=== PATIENT | male | born 1985 | race Caucasian/White ===

== ENCOUNTER 2024-05-25 08:45 | Inpatient (IN) | payer OTHER ==
[~2024-05-25] VITALS: Ht 168.9 cm; Wt 75.9 kg
[2024-05-25 09:00] VITALS: PULSE 82; RESP 20; O2SAT 94
[2024-05-25 09:29] LABS: Basophils # (auto) 0.1 10 ^3/uL (0-0.2); Basophils % (auto) 0.5 % (0.0-2.0); Eosinophils # (auto) 0 10 ^3/uL (0-0.8); Eosinophils % (auto) 0.4 % (0.0-7.0); Hematocrit 47.7 % (41.0-53.0); Lymphocytes # (auto) 1.8 10 ^3/uL (0.4-5.4); Lymphocytes % (auto) 14.8 % (10.0-50.0); Mean Corpuscular Hemoglobin 30.5 pg (28.0-32.0); Mean Corpuscular Hgb Conc. 33.6 g/dL (32.0-36.0); Mean Corpuscular Volume 90.9 fL (80.0-100.0); Monocytes # (auto) 0.5 10 ^3/uL (0-1.3); Monocytes % (auto) 3.8 % (0.0-12.0); Neutrophils # (auto) 9.8 10 ^3/uL (1.6-8.6); Neutrophils % (auto) 80.5 % (37.0-80.0); Platelet Count (auto) 281 10^3/uL (140-450); Red Blood Cells 5.25 10^6/uL (4.5-5.90); Red Cell Distribution Width 13.7 % (11.8-14.3); White Blood Cell 12.2 10^3/uL (4.4-10.8)
[2024-05-25 10:02] LABS: Alanine Aminotransferase 25 U/L (7-40); Albumin 4.8 g/dL (3.2-4.8); Alkaline Phosphatase 75 U/L (46-116); Anion Gap 6 (5-15); Aspartate Aminotransferase 39 U/L (13-40); BUN/Creatinine Ratio 12.9 (10.0-20.0); Bilirubin, Total 0.4 mg/dL (0.2-1.0); Blood Urea Nitrogen 11 mg/dL (9-23); Carbon Dioxide 28 mmol/L (20-31); Chloride 106 mmol/L (98-107); Glucose 108 mg/dL (74-106); Potassium 4.4 mmol/L (3.5-5.1); Sodium 140 mmol/L (136-145); Total Protein 7.3 g/dL (5.7-8.2)
[2024-05-25] MEDS: ASPirin 325 MG TAB PO ONE (10:30)
[2024-05-25] MEDS: ONDANSETRON HCL 4 MG/2 ML VIAL IV ONE (10:30)
[2024-05-25] MEDS: MORPHINE SULFATE 4 MG/ML SYR/VIAL IV ONE (10:30)
[2024-05-25] MEDS: HEPARIN SODIUM (PORCINE) 5000 UNITS/ML 1ML VIAL IV ONE (10:45)
[2024-05-25] MEDS ORDERED: SODIUM CHLORIDE 0.9% 1,000 ML IV SCH (11:45)
[2024-05-25] MEDS ORDERED: ACETAMINOPHEN 325 MG TAB PO PRN ×2 (11:45→12:00)
[2024-05-25] MEDS ORDERED: HYDROcodone-ACET 5/325MG TAB PO PRN (11:45)
[2024-05-25] MEDS ORDERED: NITROGLYCERIN 0.4 MG SL TAB SL PRN ×2 (11:45→12:00)
[2024-05-25] MEDS ORDERED: MORPHINE SULFATE INJ 2 MG/ml SYRG IV PRN ×2 (11:45)
[2024-05-25] MEDS ORDERED: CLOPIDOGREL BISULFATE 75 MG TAB PO ONE (11:45)
[2024-05-25] MEDS ORDERED: ATORVASTATIN 20 MG TAB PO ONE (11:45)
[2024-05-25] MEDS ORDERED: HEPARIN DRIP/D5W 100UNITS/ML 250 ML IV SCH (11:45)
[2024-05-25] MEDS: SODIUM CHLORIDE 0.9% 1,000 ML IV SCH (12:23)
[2024-05-25] MEDS: ATORVASTATIN 20 MG TAB PO ONE (12:30)
[2024-05-25] MEDS: CLOPIDOGREL BISULFATE 75 MG TAB PO ONE (12:30)
[2024-05-25 12:39] LABS: INR 1.07 (0.9-1.15); Partial Thromboplastin Time 32.8 SEC (24.5-34.5); Prothrombin Time 11.3 sec (9.3-11.8)
[2024-05-25] MEDS: HEPARIN 1,000 UNITS/ml 1ML VIAL IV ONE (12:45)
[2024-05-25] MEDS: NICOTINE 7MG/24HR TOPICAL PATCH TD ONE (13:00)
[2024-05-25 13:19] LABS: Erythrocyte Sedimentation Rate 5 mm/hr (0-20)
[2024-05-25] MEDS: HEPARIN DRIP/D5W 100UNITS/ML 250 ML IV SCH (13:50)
[2024-05-25 20:49] LABS: INR 1.08 (0.9-1.15); Partial Thromboplastin Time 45.9 SEC (24.5-34.5); Prothrombin Time 11.4 sec (9.3-11.8)
[2024-05-25] MEDS ORDERED: ATORVASTATIN 20 MG TAB PO SCH (22:00)
[2024-05-25] MEDS: ATORVASTATIN 20 MG TAB PO SCH (22:20)
[2024-05-26] VITALS (20 sets, daily range): BP systolic 120–158; BP diastolic 63–101; PULSE 66–90; RESP 11–18; TEMP 97.8–98.8; O2SAT 98–100
[2024-05-26] MEDS: MORPHINE SULFATE INJ 2 MG/ml SYRG IV PRN ×2 (02:35→18:39)
[2024-05-26 06:49] LABS: INR 1.07 (0.9-1.15); Partial Thromboplastin Time 44.1 SEC (24.5-34.5); Prothrombin Time 11.3 sec (9.3-11.8)
[2024-05-26 06:51] LABS: Basophils # (auto) 0 10 ^3/uL (0-0.2); Basophils % (auto) 0.5 % (0.0-2.0); Eosinophils # (auto) 0.3 10 ^3/uL (0-0.8); Eosinophils % (auto) 3.1 % (0.0-7.0); Hematocrit 39.4 % (41.0-53.0); Hemoglobin 12.9 g/dL (13.5-17.5); Lymphocytes # (auto) 2.7 10 ^3/uL (0.4-5.4); Lymphocytes % (auto) 32.4 % (10.0-50.0); Mean Corpuscular Hemoglobin 30.7 pg (28.0-32.0); Mean Corpuscular Hgb Conc. 32.8 g/dL (32.0-36.0); Mean Corpuscular Volume 93.6 fL (80.0-100.0); Monocytes # (auto) 0.4 10 ^3/uL (0-1.3); Neutrophils # (auto) 4.9 10 ^3/uL (1.6-8.6); Nucleated Red Blood Cells % 0.1 %; Platelet Count (auto) 208 10^3/uL (140-450); Red Blood Cells 4.21 10^6/uL (4.5-5.90); Red Cell Distribution Width 14.1 % (11.8-14.3); White Blood Cell 8.3 10^3/uL (4.4-10.8)
[2024-05-26 06:53] LABS: Alanine Aminotransferase 20 U/L (7-40); Alkaline Phosphatase 52 U/L (46-116); Anion Gap 7 (5-15); Calcium 7.6 mg/dL (8.7-10.4); Carbon Dioxide 20 mmol/L (20-31); Chloride 114 mmol/L (98-107); Potassium 3.9 mmol/L (3.5-5.1); Sodium 141 mmol/L (136-145)
[2024-05-26 06:54] LABS: Albumin 3.2 g/dL (3.2-4.8); Aspartate Aminotransferase 45 U/L (13-40); Glucose 99 mg/dL (74-106)
[2024-05-26 06:57] LABS: BUN/Creatinine Ratio 7.5 (10.0-20.0); Bilirubin, Total 0.3 mg/dL (0.2-1.0); Blood Urea Nitrogen < 5 mg/dL (9-23); Total Protein 5.1 g/dL (5.7-8.2)
[2024-05-26] MEDS: HEPARIN IN NS 1000Units/500mL 1,500 ML ONE (07:49)
[2024-05-26] MEDS: IODIXANOL 320MG/ML 100ML BTL IV ONE ×2 (07:49→08:51)
[2024-05-26] MEDS: ANGIOMAX 250 MG VIAL IV ONE (08:05)
[2024-05-26] MEDS: VERAPAMIL 2.5MG/ML INJ 2ML VIAL IV ONE (08:05)
[2024-05-26] MEDS: fentaNYL CITRATE 100 MCG/2 ML VL ONE (08:05)
[2024-05-26] MEDS: SODIUM CHL 0.9% 0 ML ONE (08:06)
[2024-05-26] MEDS: LIDOCAINE 2%HCL (LOCAL ANESTH.) INJ 20ML MDV ONE (08:06)
[2024-05-26] MEDS: MIDAZOLAM HCL 2MG/2ML 2ml VIAL (1mg/ml) ONE (08:06)
[2024-05-26] MEDS: HEPARIN SODIUM (PORCINE) 5000 UNITS/ML 1ML VIAL ONE (08:54)
[2024-05-26] MEDS: ASPirin 81 mg TAB PO SCH (09:37)
[2024-05-26] MEDS ORDERED: CLOPIDOGREL BISULFATE 75 MG TAB PO SCH ×2 (10:00)
[2024-05-26] MEDS ORDERED: ASPirin 81 mg TAB PO SCH (10:00)
[2024-05-26] MEDS: NICOTINE 7MG/24HR TOPICAL PATCH TD SCH (10:46)
[2024-05-26] MEDS: HYDROcodone-ACET 5/325MG TAB PO PRN (12:35)
[2024-05-26] MEDS: HEPARIN DRIP/D5W 100UNITS/ML 250 ML IV SCH ×2 (13:59→15:49)
[2024-05-26] MEDS: HEPARIN DRIP/D5W 100UNITS/ML 250 ML IV ONE (14:15)
[2024-05-26 15:07] LABS: INR 1.08 (0.9-1.15); Prothrombin Time 11.4 sec (9.3-11.8)
[2024-05-26] MEDS ORDERED: HYDR-3682 PO (17:53)
[2024-05-26] MEDS ORDERED: METH-1181 PO (17:53)
[2024-05-26] MEDS ORDERED: AML5T PO (17:54)
[2024-05-26] MEDS ORDERED: ATOR20TA50 PO (17:54)
[2024-05-26] MEDS ORDERED: AMPH20TA2 PO (17:55)
[2024-05-26] MEDS ORDERED: VALS40TA2 PO (17:56)
[2024-05-26] MEDS ORDERED: SILD-60 PO (17:56)
[2024-05-26] MEDS ORDERED: LEV75T PO (17:57)
[2024-05-26] MEDS ORDERED: DEXT30TA PO (17:59)
[2024-05-26] MEDS ORDERED: TRAZ-228 PO (18:00)
[2024-05-26] MEDS ORDERED: HYDROcodone-ACET 5/325MG TAB PO ONE (20:30)
[2024-05-27 01:02] VITALS: BP 123/79; PULSE 92; RESP 18; TEMP 97.9; O2SAT 98
[2024-05-27 01:23] LABS: INR 1.06 (0.9-1.15); Partial Thromboplastin Time 47.7 SEC (24.5-34.5); Prothrombin Time 11.2 sec (9.3-11.8)
[2024-05-27] MEDS ORDERED: HEPARIN DRIP/D5W 100UNITS/ML 250 ML IV SCH ×2 (01:45→17:15)
[2024-05-27 05:00] VITALS: BP 112/80; PULSE 75; RESP 17; TEMP 98.1; O2SAT 98
[2024-05-27 07:08] LABS: Basophils # (auto) 0.1 10 ^3/uL (0-0.2); Basophils % (auto) 0.8 % (0.0-2.0); Eosinophils # (auto) 0.3 10 ^3/uL (0-0.8); Eosinophils % (auto) 3.8 % (0.0-7.0); Hematocrit 45.9 % (41.0-53.0); Hemoglobin 15.8 g/dL (13.5-17.5); Lymphocytes # (auto) 2.2 10 ^3/uL (0.4-5.4); Lymphocytes % (auto) 29.2 % (10.0-50.0); Mean Corpuscular Hgb Conc. 34.4 g/dL (32.0-36.0); Mean Corpuscular Volume 90.2 fL (80.0-100.0); Monocytes # (auto) 0.5 10 ^3/uL (0-1.3); Monocytes % (auto) 6.2 % (0.0-12.0); Neutrophils # (auto) 4.4 10 ^3/uL (1.6-8.6); Nucleated Red Blood Cells % 0.2 %; Platelet Count (auto) 243 10^3/uL (140-450); Red Blood Cells 5.09 10^6/uL (4.5-5.90); Red Cell Distribution Width 13.9 % (11.8-14.3); White Blood Cell 7.4 10^3/uL (4.4-10.8)
[2024-05-27 07:39] LABS: Alanine Aminotransferase 23 U/L (7-40); Albumin 4.2 g/dL (3.2-4.8); Alkaline Phosphatase 66 U/L (46-116); Anion Gap 7 (5-15); Aspartate Aminotransferase 25 U/L (13-40); Blood Urea Nitrogen 8 mg/dL (9-23); Calcium 9.4 mg/dL (8.7-10.4); Carbon Dioxide 27 mmol/L (20-31); Chloride 108 mmol/L (98-107); Glucose 94 mg/dL (74-106); Potassium 3.9 mmol/L (3.5-5.1); Sodium 142 mmol/L (136-145)
[2024-05-27 07:40] LABS: Bilirubin, Total 0.6 mg/dL (0.2-1.0); Total Protein 6.5 g/dL (5.7-8.2)
[2024-05-27 08:00] VITALS: PULSE 59; PULSE 92; RESP 16; O2SAT 97
[2024-05-27 11:16] LABS: INR 1.06 (0.9-1.15); Partial Thromboplastin Time 57.9 SEC (24.5-34.5); Prothrombin Time 11.2 sec (9.3-11.8)
[2024-05-27 13:00] VITALS: BP 135/89; PULSE 81; RESP 17; TEMP 98.1; O2SAT 98
[2024-05-27] MEDS: HEPARIN DRIP/D5W 100UNITS/ML 250 ML IV SCH (13:00)
[2024-05-27 15:26] VITALS: BP 135/89; PULSE 81; RESP 17; TEMP 98.1; O2SAT 98
[2024-05-27 16:41] LABS: INR 1.09 (0.9-1.15); Partial Thromboplastin Time 35.1 SEC (24.5-34.5); Prothrombin Time 11.5 sec (9.3-11.8)
== END 2024-05-27 17:20 | disposition short-term general hospital (02) | DRG 282 ==
LOC: EDUNIT# 08:45 → ER 08:45 → EDBD 08:45 → ER 11:44 → TELE 11:44 → TELE-WESTW 05-26 17:32
PROVIDERS: ADMIT Registered Nurse; ATTEND Internal Medicine
PROC: B211YZZ Fluoroscopy of Multiple Coronary Arteries using Other Contrast (ICD-10-PCS; principal; 2024-05-26)
PROC: 4A023N7 Measurement of Cardiac Sampling and Pressure, Left Heart, Percutaneous Approach (ICD-10-PCS; 2024-05-26)
DX: I21.4 Non-ST elevation (NSTEMI) myocardial infarction (principal); I10 Essential (primary) hypertension; E03.9 Hypothyroidism, unspecified; F17.210 Nicotine dependence, cigarettes, uncomplicated; E78.5 Hyperlipidemia, unspecified; I25.10 Atherosclerotic heart disease of native coronary artery without angina pectoris; F10.10 Alcohol abuse, uncomplicated; Y90.9 Presence of alcohol in blood, level not specified; Z88.0 Allergy status to penicillin; Z79.899 Other long term (current) drug therapy
CPT/HCPCS: 36415; 71045; 80053; 80061; 83036; 83735; 84443; 84484; 85025; 85610; 85652; 85730; 87081; 93005; 93306; 99152; 99291; G0378; J2250; J2405; Q9967